=== PATIENT | male | born 1980 | race Hispanic/Latino ===

== ENCOUNTER 2024-05-22 08:36 | Emergency (ER) | payer OTHER ==
[~2024-05-22] VITALS: Ht 172.7 cm; Wt 72.6 kg
[2024-05-22 09:01] LABS: BASOPHILS # (AUTO) 0.01 K/uL (0.00-0.20); BASOPHILS % (AUTO) 0.2 % (0.0-5.0); EOSINOPHILS # (AUTO) 0.08 K/uL (0.00-0.70); EOSINOPHILS % (AUTO) 1.6 % (0.0-8.0); HEMATOCRIT 44.8 % (42-54); IMMATURE GRANULOCYTE ABSOLUTE 0.01 K/uL (0-1); LYMPHOCYTES # (AUTO) 1.2 K/uL (1.0-4.8); MEAN CORPUSCULAR HEMOGLOBIN 30.2 pg (27.0-33.0); MEAN CORPUSCULAR HGB CONC 34.2 g/dL (32.0-36.0); MEAN CORPUSCULAR VOLUME 88.5 fL (79-99); MONOCYTES # (AUTO) 0.4 K/uL (0.1-1.0); MONOCYTES % (AUTO) 7.5 % (3.0-13.0); NEUTROPHILS # (AUTO) 3.3 K/uL (1.8-7.7); NEUTROPHILS % (AUTO) 65.5 % (40.0-77.0); PLATELET COUNT (AUTO) 304 K/uL (130-400); RED BLOOD CELL COUNT(AUTO) 5.06 MIL/uL (4.50-6.20); RED CELL DISTRIBUTION WIDTH 13.4 % (11.0-15.5)
[2024-05-22] MEDS: ONDANSETRON 4MG INJ IVP ONE (09:11)
[2024-05-22] MEDS: MORPHINE 2 MG SYG IVP ONE (09:11)
[2024-05-22] MEDS: ONDANSETRON 4MG INJ ONE (09:12)
[2024-05-22] MEDS: MORPHINE 2 MG SYG ONE (09:12)
[2024-05-22 09:14] LABS: CREATININE 0.9 mg/dL (0.5-1.3); POTASSIUM 3.8 mmol/L (3.5-5.1)
[2024-05-22 09:19] LABS: ALBUMIN 4.2 g/dL (3.5-5.0); BILIRUBIN,TOTAL 0.8 mg/dL (0.2-1.0); TOTAL PROTEIN, SERUM 7.5 g/dL (6.0-8.3)
[2024-05-22] MEDS: KETOROLAC 15MG/ML VIAL (15MG/ML) ONE (09:47)
[2024-05-22] MEDS: KETOROLAC 15MG/ML VIAL (15MG/ML) IV ONE (09:47)
[2024-05-22] MEDS ORDERED: IOHEXOL 350 MG/ML 100ML INFUS..BTL IV ONE (10:00)
[2024-05-22] MEDS ORDERED: IOHEXOL-350 75 ML VIAL IV ONE (10:17)
[2024-05-22] MEDS: 0.9%NACL 1000ML 1,000 ML IV ONE (11:15)
[2024-05-22 11:36] LABS: APPEARANCE,URINE CLEAR (CLEAR); BILIRUBIN,URINE NEGATIVE (NEGATIVE); COLOR,URINE YELLOW (YELLOW); GLUCOSE, URINE (UA) NEGATIVE (NEGATIVE); KETONES,URINE 150 mg/dL (NEGATIVE); LEUKOCYTE ESTERASE ,URINE NEGATIVE Leu/uL (NEGATIVE); NITRATE,URINE NEGATIVE (NEGATIVE); OCCULT BLOOD,URINE NEGATIVE (NEGATIVE); PH,URINE 8.5 (5.0-8.0); PROTEIN,URINE 70 mg/dL (NEGATIVE); UROBILINOGEN,URINE 0.2 mg/dL (0.2-1.0)
[2024-05-22 11:43] LABS: ADD UA MICROSCOPIC YES
[2024-05-22 11:47] LABS: MUCUS,URINE RARE LPF (None Seen); SQUAMOUS EPITHELIAL CELL,UR RARE /HPF (0-2)
[2024-05-22 12:05] VITALS: BP 121/72; PULSE 57; RESP 18; O2SAT 100
== END 2024-05-22 12:16 | disposition home or self-care (01) ==
LOC: EDH 08:36
DX: R10.33 Periumbilical pain (principal); K42.0 Umbilical hernia with obstruction, without gangrene; F17.200 Nicotine dependence, unspecified, uncomplicated
CPT/HCPCS: 99285; 74178; 96374; 96375; 96361; 80053; 83690; 85025; 83605; 86140; 81001; 36415; J2270; J7030; J2405; J1885; Q9967 ×2